=== PATIENT | male | born 1995 | race African-American/Black ===

== ENCOUNTER 2024-11-16 13:02 | Emergency (ER) | payer OTHER, SELFPAY ==
--- NOTE | ~2024-11-16 | XR_ITS ---
EXAM/PROCEDURE: XR chest 2V - 11/16/2024 13:50 CDT HISTORY: 29 years old Male with seizure TECHNIQUE: Two view(s) of the chest. COMPARISON: None available. FINDINGS: LUNGS/ PLEURA: No focal consolidation. No appreciable pneumothorax or large pleural effusion. HEART/ MEDIASTINUM: Heart appears normal in size. BONES: No acute osseous abnormality. OTHER: Visualized upper abdomen is unremarkable. IMPRESSION: No acute process. Reviewed, dictated and finalized at location A. IMPRESSION: No acute process.
--- NOTE | ~2024-11-16 | CT_ITS ---
Non-contrast Head CT History: Seizure, head injury Technique: Axial non-contrast imaging of the brain was performed. Dose reduction technique was used on this scan by utilizing automated exposure control and iterative reconstruction technique. The dose -length product (DLP) was 605.33 mGy-cm. Findings: There is no evidence of intracranial hemorrhage, mass lesion, or acute infarct. Brain par enchyma appears normal. The ventricles and subarachnoid spaces are normal in size. The calvarium ap pears normal. The visualized paranasal sinuses and mastoid air cells are clear. Impression: No significant abnormality seen. Reviewed, dictated and finalized at location . Impression: No significant abnormality seen.
[2024-11-16 12:52] VITALS: BP 133/80; PULSE 64; RESP 13; TEMP 36.3; O2SAT 100
[2024-11-16 13:08] VITALS: PULSE 74
[2024-11-16 13:30] VITALS: BP 134/76; PULSE 77; RESP 16; O2SAT 100
[2024-11-16 13:42] LABS: Hematocrit 45.7 % (42.0-52.0); Hemoglobin 15.3 g/dL (14.0-18.0); Immature Granulocyte Percent A 0.3 % (0-0.5); Lymphocytes Absolute Auto 1.56 K/mm3 (0.9-3.2); Mean Corpuscular HGB Conc 33.5 g/dl (32-36); Mean Corpuscular Hemoglobin 30.6 pg (26-34); Mean Corpuscular Volume 91.4 fl (80-100); Nucleated Red Blood Cells Absolute Auto 0.000 K/mm3 (0.0-0.012); Nucleated Red Blood Cells Perc 0.0 % (0.0-0.2); Platelet Count Result 143 k/mm3 (150-375); Red Blood Count 5.00 M/mm3 (4.6-6.20); White Blood Count 6.6 K/mm3 (4.5-10.0)
[2024-11-16 13:49] LABS: Alanine Aminotransferase 38 U/L (6-50); Albumin Level 4.7 g/dL (3.5-5.1); Alkaline Phosphatase 85 U/L (38-126); Anion Gap 10 mmol/L (4-12); Aspartate Amino Transferase 43 U/L (17-59); Bilirubin,Total 0.7 mg/dL (0.2-1.3); Blood Urea Nitrogen 15 mg/dL (9-20); Calcium 9.2 mg/dL (8.4-10.2); Carbon Dioxide 25 mmol/L (22-30); Chloride 104 mmol/L (98-107); Estimated Glomerular Filt Rate > 60; Glucose 111 mg/dL (65-110); Potassium 4.2 mmol/L (3.4-5.0); Sodium 139 mmol/L (137-145); Total Protein 8.1 g/dL (6.3-8.2)
[2024-11-16] MEDS: levETIRAcetam 1000MG/NACL100ML 1,000 MG/100 ML BAG 400 MG IVPB (14:11)
[2024-11-16] MEDS: Please add drug allergy info to patient profile. 1 EACH XX (14:11)
--- OUTSIDE RECORDS SUMMARY | 2024-11-16 14:23 | XMS_ITS | Continuity of Care Document ---
Author Name [facility] Organization [facility] Care Team Providers Care Assistant Research Scientist Name Role Phone [facility] Unavailable Unavailable Social History Combined list of available smoking, tobacco, and other social history from Department of Defense and Veterans Affairs facilities. Social History Type Response Date Comment Sourc e This section is an empty social history section. DoD
--- OUTSIDE RECORDS SUMMARY | 2024-11-16 14:23 | XMS_ITS | Referral Summary ---
Author Organization [facility] Address [address] [place] [address] Care Team Providers Care Shore Man Name Role Phone Carol Burkett NP Unavailable [phone] Nichelle Andrew MD Primary Care Provid er Clarke Robins MD Unavailable [phone] Iris Stubbs MD Unavailable [phone] Allergies No known active allergies Medications acetaminophen (TYLENOL) 500 mg tablet Take 1 tablet (500 mg total) by mouth every 6 (six) hours as needed for headaches or pain 30 tablet 2 Active Additional Information Patient not taking.Informant: Self, Reported on 04/25/2024 polyethylene glycol (GoLYTELY) 236-22.74-6.74 -5.86 gram solution Mix as directed. At 4:00 pm, begin drinking one half of the mixed solution; you will have until 7:00 pm to finish. At 10 pm drink the second half of the mixed solution, you have till midnight to finish. 4000 mL 4 Active Additional Information Patient not taking.Reported on 04/25/2024 bisacodyl EC (DULCOLAX EC) 5 mg EC tablet At 7 pm, take all four tablets at once with a glass of water. 4 tablet 4 Active Additional Information Patient not taking.Reported on 04/25/2024 Active Problems Problem Noted Date Diagnosed Date Family history of colon cancer 12/15/2023 Nasal obstruction 12/23/2022 Nasal septal deviation 12/23/2022 Hypertrophy of both inferior nasal turbinates Traumatic incomplete tear of right rotator cuff 11/10/2022 Assessment & Plan (11/10/2022 4:08 PM CDT): By MRI the patient has a partial-thickness tear of the rotator cuff. After reviewing the treatment options patient elected undergo a cortisone injection today to the severity of her symptoms. He will be enrolled in physical therapy to work on a rotator cuff rehab program. He is having persistent symptoms following the therapies return but most individuals respond to conservative measures. 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 His pain however is not associated with his AC joint where the nonunion is present. His pain is likely from his underlying partial-thickness tear of the rotator cuff. Physical therapy was prescribed to see what kind of recovery he can gain. Assessment & Plan (06/22/2021 10:43 AM JAVA GOLDEN GATE DEVELOPER): Patient appears to have a nonunion of the lateral end of the clavicle with displacement. He likely had a comminuted clavicle fracture. I am concerned however that he has weakness in the rotator cuff on exam that would be consistent with a rotator cuff tear. Would recommend obtaining an MRI to rule out the possibility of a tear in the vicinity of the shoulder. Will initiate appropriate treatment once results are available Lumbar herniated disc 06/22/2021 Assessment & Plan (08/05/2021 10:50 AM CDT): Patient has significant disc space narrowing in the lumbar spine in a single- level and likely has a herniation overt degeneration of the disc. He was denied his MRI. Would have physical therapy working on a conditioning program. He has not found oral anti-inflammatories helpful. He may find pain management helpful as well. Assessment & Plan (06/22/2021 10:45 AM JAVA GOLDEN GATE DEVELOPER): Patient has lost nearly all of his L4-5 disc height consistent with a disc herniation at his age. He does get radicular symptoms. He is not myelopathic. MRI would likely be helpful to evaluate the degree of stenosis the patient has present and initiate appropriate treatment once results are available Hip pain 06/22/2021 Assessment & Plan (06/22/2021 10:45 AM JAVA GOLDEN GATE DEVELOPER): Patient has pronounced hip and groin pain with standing. Has no evidence of a hernia or acute muscular issue with the hip. Concerned that he has pain with weight- bearing. He could have a stress fracture or even avascular necrosis. This is seen in higher incidence in males and the patient is physically quite active. Would recommend obtaining an MRI to rule out the possibility of AVN. He does have mild degenerative changes and could have a cam and pincer affect occurring in the hip joint as well. These can be associated with labral tears in the MRI will evaluate the labrum also Immunizations Immunization Administration Dates Next Due DTaP 12/13/1999 Hep A, Pediatric 02/04/2008,11/18/2006 IPV 12/13/1999 Influenza, Split 03/21/2008 Influenza, Unspecified 04/25/2024(Deferr ed: Patient Refused),05/17/2020(Deferred: Patient Refused),05/17/2020(Deferred: Patient Refused) MMR 02/07/1999 PPD TEST 01/26/2024 Tdap 11/19/2022 Varicella 12/10/1999 Social History Tobacco Use Types Packs/Day Years Used Date Smoking Tobacco: Former Cigars 2 - 2018 Passive Smoke Exposure: Past Smokeless Tobacco: Never Tobacco Cessation:Counseling Given: No Comments:2 cigars a day Alcohol Use Standard Drinks/Week Comments No 0 (1 standard drink = 0.6 oz pur e alcohol) AUDIT-C Answer Date Recorded Q1: How often do you have a drink containing alc ohol? Monthly or less 12/25/2023 Q2: How many drinks containi ng alcohol do you have on a typical day when you are drinking? 1 or 2 12/25/2023 Frequency of Binge Drinking Not on file 12/09 PHQ-2 Answer Date Recorded PHQ-2 Total Score (If total score is 3 or more points, staff should administer the PHQ-9) 2 12/02/2023 Personal Safety Answer Date Recorded Have you ever been in or are you currently in a harmful physical or emotional relationship or is someone making you feel afraid or unsafe? 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 Not on file Not on file Last Filed Vital Signs Vital Sign Reading Time Taken Comments Blood Pressure 120/70 04/25/2024 2:41 PM JAVA GOLDEN GATE DEVELOPER Pulse 50 04/25/2024 2:41 PM JAVA GOLDEN GATE DEVELOPER Temperature 36.1 C (97 F) 12/02/2023 3:53 PM CDT Respiratory Rate 16 04/25/2024 2:41 PM JAVA GOLDEN GATE DEVELOPER Oxygen Saturation 98% 04/25/2024 2:41 PM JAVA GOLDEN GATE DEVELOPER Inhaled Oxygen Concentration - - Weight 75.8 kg (167 lb) 04/25/2024 2:41 PM JAVA GOLDEN GATE DEVELOPER Height 172.7 cm (5' 8) 04/25/2024 2:41 PM JAVA GOLDEN GATE DEVELOPER Body Mass Index 25.39 04/25/2024 2:41 PM JAVA GOLDEN GATE DEVELOPER Plan of Treatment Not on file Procedures Procedure Name Priority Date/Time Associated Diagnosis Comments HEPATITIS C ANTIBODY Routine 12/03/2023 7:24 AM CDT Screen for STD (sexually transmitted disease) from Last 3 Months or Most Recently Relevant to Health Maintenance Results * Hepatitis C antibody Blood (12/03/2023 7:24 AM CDT) Hep C Ab Nonreactive Nonreactive Comment: Interpretive Data Nonreactive: Antibodies to HCV not detected. Does NOT exclude the possibility of recent exposure to HCV. Equivocal: Equivocal for HCV antibodies. Supplemental molecular testing will be automatically performed to determine infection status in accordance with current CDC screening recommendations. Reactive: Positive for HCV antibodies. This may represent current or past HCV infection. Supplemental molecular testing will be automatically performed to determine current infection status in accordance with current CDC screening recommendations. Interpretive data was last revised on 2019. Blood 12/03/2023 7:24 AM CDT 12/03/2023 10:48 AM CDT Nichelle Andrew MD LAB MICROBIOLOGY - G ENERAL ORDERABLES Final Result [id number] Department [place] [address] from Last 3 Months or Most Recently Relevant to Health Maintenance Insurance [employer] OPEN ACCESS CIGNA OPEN ACCESS Care Teams Shore Man Relationship Specialty Start Date End Date Nichelle Andrew MD [address] [facility] [address] [place] [address] PCP - General Internal Medicine 01/27/20 Carol Burkett NP Registered Nurse Nurse Practitioner 08/31/19 Clarke Robins MD [address] [facility] [address] [place] [address] Consulting Physician Physical Medicine and Rehabilitation 11/19/22 Iris Stubbs MD [address] [place] [address] Consulting Physician Otolaryngology 11/19/22
--- OUTSIDE RECORDS SUMMARY | 2024-11-16 14:23 | XMS_ITS | Clinical Summary ---
Author Organization [facility] Address [address] [place] [address] Care Team Providers Care Coil Winding Supervisor Name Role Phone Carol Burkett NP Unavailable [phone] Nichelle Andrew MD Primary Care Provid er Clarke Robins MD Unavailable [phone] Iris Stubbs MD Unavailable [phone] Allergies No known active allergies Medications acetaminophen [...] gain. Assessment & Plan (06/22/2021 10:43 AM ELEVATOR CONSTRUCTOR ELECTRIC): Patient appears to have a nonunion of [...] well. Assessment & Plan (06/22/2021 10:45 AM ELEVATOR CONSTRUCTOR ELECTRIC): Patient has lost nearly all of his L4-5 disc height consistent with a disc herniation at his age. He does get radicular symptoms. He is not myelopathic. MRI would likely be helpful to evaluate the degree of stenosis the patient has present and initiate appropriate treatment once results are available Hip pain 06/22/2021 Assessment & Plan (06/22/2021 10:45 AM ELEVATOR CONSTRUCTOR ELECTRIC): Patient has pronounced hip and groin pain [...] PPD TEST 01/26/2024 Tdap 11/19/2022 Varicella 12/10/1999 Surgical History Surgery Date Site/Laterality Comments WISDOM TOOTH EXTRACTION 05/11/2015 - 05/10/2016 [place] FLUORO GUIDED LUMBAR PUNCTURE 02/09/2023 Right COLONOSCOPY 12/25/2023 Medical History Medical History Date Comments PTSD (post-traumatic stress disorder) Depression Dental disease feb 2022 Fracture of nasal bones feb 2022 Dizziness feb 2022 Family History Medical History Relation Name Comments No Known Problems Brother Alcohol abuse Father K Cancer Father K Drug abuse Father K Prostate cancer Father K Alcohol abuse Father's Brother 1 A Drug abuse Father's Brother 2 AE Diabetes Father's Sister 1 S Drug abuse Father's Sister 2 SE Cancer Maternal Grandmother MT Diabetes Mother B Drug abuse Mother B Hypertension Mother B Alcohol abuse Mother's Brother 1 M Hypertension Mother's Brother 1 M Drug abuse Mother's Brother 2 MT Heart attack Mother's Brother 2 MT Diabetes Mother's Sister 1 T Drug abuse Mother's Sister 2 TT Diabetes Other Heart failure Other Hypertension Other Arthritis Paternal Grandmother AE Hypertension Paternal Grandmother AE No Known Problems Sister Anesthesia problems Neg Hx Relation Name Status Comments Brother Father K Father's Brother 1 A Father's Brother 2 AE Father's Sister 1 S Father's Sister 2 SE Maternal Grandmother MT Mother B Mother's Brother 1 M Mother's Brother 2 MT Mother's Sister 1 T Mother's Sister 2 TT Other Paternal Grandmother AE Sister Social History Tobacco Use Types Packs/Day Years [...] on file Legal Sex Male 11:56 PM ELEVATOR CONSTRUCTOR ELECTRIC Gender Identity Male 11/21/2020 9:56 PM CDT Sexual Orientation Straight 11/21/2020 9: 56 PM CDT 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 Not on file Not on file Obstetrics History Last Filed Vital Signs Vital Sign Reading Time Taken Comments Blood Pressure 120/70 04/25/2024 2:41 PM ELEVATOR CONSTRUCTOR ELECTRIC Pulse 50 04/25/2024 2:41 PM ELEVATOR CONSTRUCTOR ELECTRIC Temperature 36.1 C (97 F) 12/02/2023 3:53 PM CDT Respiratory Rate 16 04/25/2024 2:41 PM ELEVATOR CONSTRUCTOR ELECTRIC Oxygen Saturation 98% 04/25/2024 2:41 PM ELEVATOR CONSTRUCTOR ELECTRIC Inhaled Oxygen Concentration - - Weight 75.8 kg (167 lb) 04/25/2024 2:41 PM ELEVATOR CONSTRUCTOR ELECTRIC Height 172.7 cm (5' 8) 04/25/2024 2:41 PM ELEVATOR CONSTRUCTOR ELECTRIC Body Mass Index 25.39 04/25/2024 2:41 PM ELEVATOR CONSTRUCTOR ELECTRIC Plan of Treatment Health Maintenance Due Date Last Done Comments Varicella Vaccines (2 of 2 - 2-dose childhood series) 03/03/2000 12/10/1999 Hepatitis B Screening 08/20/2011 Depression Screening 12/01/2024 12/02/2023, 11/19/2022, 02/28/2022, Additional history exists Regular Well Visit/Exam 18-64 12/01/2024 12/02/2023, 12/02/2023, 11/19/2022, Additional history exists Influenza Vaccine (#1) 2025 03/21/2008 DTaP/Tdap/Td Vaccine (3 - Td or Tdap) 11/19/2032 11/19/2022, 12/13/1999 Hepatitis C Screening Completed 12/03/2023, 022 HPV Vaccines Aged Out No longer eligi ble based on patient's age to complete this topic Pneumococcal vaccine <65 Aged Out No longer eligible based on patient's age to complete this topic Procedures Procedure Name Priority Date/Time Associated Diagnosis [...] MICROBIOLOGY - G ENERAL ORDERABLES Final Result Performing Organization Address City/[place] Number [place] [address] [facility] Department [place] [address] from Last 3 Months or Most Recently Relevant to Health Maintenance Insurance [employer] OPEN ACCESS CIGNA OPEN ACCESS Care Teams Coil Winding Supervisor Relationship Specialty Start Date End Date Nichelle Andrew MD [address] [facility] [address] [place] [address] PCP - General Internal Medicine 01/27/20 Carol Burkett NP Registered Nurse Nurse Practitioner 08/31/19 Clarke Robins MD [address] [facility] [address] [place] [address] Consulting Physician Physical Medicine and Rehabilitation 11/19/22 Iris Stubbs MD [address] [place] [address] Consulting Physician Otolaryngology 11/19/22
--- OUTSIDE RECORDS SUMMARY | 2024-11-16 14:23 | XMS_ITS | Clinical Summary ---
Author Organization [facility] Address [address] [facility] [place] [address] Care Team Providers Care Qa Software Test Engineer Name Role Phone Nichelle Andrew MD Primary Care Provid er Source Comments [facility],non-owned Affiliates and Associated Physician Practices is amultiple site organization consisting of ambulatory clinics and hospital sitesin [place], [place], [place] and [place]. This disclosure is being madepursuant to the Care Everywhere program and may not contain all information available regarding this patient. Last updated 18.[facility] Social History Tobacco Use Types Packs/Day Years Used Date Smoking Tobacco: Never Assessed Sex and Gender Information Value Date Recorded Sex Assigned at Not on file Legal Sex Male 5:36 AM MALT LIQUORS SALES REPRESENTATIVE Gender Identity Not on file Sexual Orientation Not on file Last Filed Vital Signs Vital Sign Reading Time Taken Comments Blood Pressure 112/69 04/07/2024 11:15 AM MALT LIQUORS SALES REPRESENTATIVE Pulse 61 04/07/2024 11:15 AM MALT LIQUORS SALES REPRESENTATIVE Temperature 36.7 C (98.1 F) 04/07/2024 9:31 AM MALT LIQUORS SALES REPRESENTATIVE Respiratory Rate 10 04/07/2024 11:15 AM MALT LIQUORS SALES REPRESENTATIVE Oxygen Saturation 99% 04/07/2024 11:15 AM MALT LIQUORS SALES REPRESENTATIVE Inhaled Oxygen Concentration - - Weight - - Height - - Body Mass Index - - Plan of Treatment Health Maintenance Due Date Last Done Comments HIV SCREENING 2008 HEPATITIS C SCREENING 08/15/2011 DTAP/TDAP/TD VACCINES (1 - Tdap) 2012 HEPATITIS B VACCINE (1 of 3 - 19+ 3-dose series) 2012 COVID-19 VACCINE ( season) 2024 DEPRESSION SCREENING 05/11/2024 INFLUENZA VACCINE (#1) 2025 6, 03/17/2015, 01/21/2014, Additional history exists ZOSTER VACCINE (1 of 2) 08/20/2043 HIB VACCINE Aged Out No longer eligi ble based on patient's age to complete this topic HPV VACCINE Aged Out No longer eligi ble based on patient's age to complete this topic MENINGOCOCCAL (Group B) VACCINE SHARED DECISION-MAKING Aged Out No longer eligible based on patient's age to complete this topic MENINGOCOCCAL GROUPS A/C/Y/W VACCINE Aged Out No longer eligible based on patient's age to complete this topic PNEUMOCOCCAL VACCINE Aged Out No long er eligible based on patient's age to complete this topic Insurance CIG Care Teams Qa Software Test Engineer Relationship Specialty Start Date End Date Nichelle Andrew MD [facility] [address] [place] [address] PCP - General Internal Medicine 04/06/24
--- NOTE | 2024-11-16 14:48 | ED_ITS ---
HPI - Seizure General Chief Complaint: Seizure Stated Complaint: Seizure Time Seen by Provider: 11/16/24 13:17 History of Present Illness HPI Narrative: Patient is a 29-year-old male who presents ER after having a seizure work. Initially postictal. He is now alert orient x4 but still has some foggy memory. He had loss of bladder and tongue biting. He reports he had a seizure in the last 1-2 months but unsure which hospital he was at. He reports he is not on any antiepileptics. Reports occasional marijuana use but none today. No family history of seizure disorder. No history of trauma. Patient has abrasions to the head. Tetanus is up-to-date. Related Data Allergies Allergy/AdvReac Type Severity Reaction Status Date / Time No Known Allergies Allergy Verified 11/16/24 14:10 Review of Systems 2 Review of Systems: All systems reviewed & are unremarkable except as noted in HPI and below Constitutional: Constitutional: Reports no additional constitutional complaints ENT: Reports system reviewed and no additional complaints, except as documented Cardiovascular: Cardiovascular: Reports no additional cardiovascular complaints Respiratory: Respiratory: Reports no additional respiratory complaints Gastrointestinal: Gastrointestinal: Reports no additional gastrointestinal complaints Neurologic: Reports system reviewed and no additional complaints, except as documented PMFSH Past Medical History Medical History (Updated 11/16/24 @ 15:38 by Chris Goode MD) Healthy adult male Surgical History Surgical History (Updated 11/16/24 @ 14:51 by Chris Goode MD) No pertinent past surgical history Exam 2 Narrative: GENERAL: Well-appearing, well-nourished, and in no acute distress. HEAD: Normocephalic, abrasions right forehead and parietal region.. EYES: PERRL and EOMI. ENT: Mucous membranes moist. Tongue biting left side. CHEST: Clear to auscultation. No respiratory distress. HEART: Regular rate and rhythm. Normal peripheral pulses. ABDOMEN: Soft, nontender, nondistended. EXTREMITIES: Normal range of motion. No edema. SKIN: Warm, dry, no rash. NEURO: Alert and oriented x3. PSYCH: Normal mood and affect. Course Course Emergency Course: Discussed case with Neurology on-call. Patient has received 1 g of Keppra. Discharged with Keppra 750 mg twice a day. Driving restrictions given. Patient verbalized understanding. Discharge home. Vital Signs Vital signs: Vital Signs Temperature 97.3 F L 11/16/24 12:52 Pulse Rate 64 11/16/24 12:52 Respiratory Rate 13 11/16/24 12:52 Blood Pressure 133/80 11/16/24 12:52 Pulse Oximetry 100 11/16/24 12:52 Oxygen Delivery Room Air 11/16/24 12:52 Temperature 97.3 F L 11/16/24 12:52 Pulse Rate 77 11/16/24 13:30 Respiratory Rate 16 11/16/24 13:30 Blood Pressure 134/76 11/16/24 13:30 Pulse Oximetry 100 11/16/24 13:30 Oxygen Delivery Room Air 11/16/24 13:04 MDM - Seizure Lab Data 11/16/24 13:30 11/16/24 13:30 Labs: Lab Results 11/16/24 11/16/24 Range/Units 13:30 14:46 WBC 6.6 (4.5-10.0) K/mm3 RBC 5.00 (4.6-6.20) M/mm3 Hgb 15.3 (14.0-18.0) g/dL Hct 45.7 (42.0-52.0) % MCV 91.4 (80-100) fl MCH 30.6 (26-34) pg MCHC 33.5 (32-36) g/dl RDW 12.6 (11.5-14.5) % Plt Count 143 L (150-375) k/mm3 MPV 10.8 H (7.4-10.4) fl Immature Gran % (Auto) 0.3 (0-0.5) % Neut % (Auto) 71.3 (45.5-73.1) % Lymph % (Auto) 23.6 (18.3-44.2) % Becker % (Auto) 4.1 (2.6-8.5) % Eos % (Auto) 0.5 (0-4.4) % Baso % (Auto) 0.2 (0.2-1.2) % Lymph # (Auto) 1.56 (0.9-3.2) K/mm3 Becker # (Auto) 0.3 (0.1-0.6) K/mm3 Eos # (Auto) 0.0 (0-0.3) K/mm3 Baso # (Auto) 0.0 (0.0-0.1) K/mm3 Abs Immat Gran (auto) 0.02 (0.00-0.031) K/mm3 Absolute Neuts (auto) 4.7 (1.3-6.7) K/mm3 Absolute Nucleated RBC 0.000 (0.0-0.012) K/mm3 Nucleated RBC % 0.0 (0.0-0.2) % Sodium 139 (137-145) mmol/L Potassium 4.2 (3.4-5.0) mmol/L Chloride 104 (98-107) mmol/L Carbon Dioxide 25 (22-30) mmol/L Anion Gap 10 (4-12) mmol/L BUN 15 (9-20) mg/dL Creatinine 1.34 H (0.7-1.3) mg/dL Estim Creat Clear Calc Not Reportable Estimated GFR > 60 (59 - ) Glucose 111 H (65-110) mg/dL Calcium 9.2 (8.4-10.2) mg/dL Total Bilirubin 0.7 (0.2-1.3) mg/dL AST 43 (17-59) U/L ALT 38 (6-50) U/L Alkaline Phosphatase 85 (38-126) U/L Total Protein 8.1 (6.3-8.2) g/dL Albumin 4.7 (3.5-5.1) g/dL Urine Color Yellow (Yellow) Urine Appearance Clear (Clear) Urine pH 5.5 (5.0-9.0) Ur Specific Beaman 1.019 (1.001-1.035) Urine Protein 1+ H (Negative) mg/dL Urine Glucose (UA) Negative (Negative) mg/dL Urine Ketones Trace H (Negative) mg/dL Ur Blood (Man) Negative (Negative) Urine Nitrate Negative (Negative) Urine Bilirubin Negative (Negative) Urine Urobilinogen 0.2 (<2.0) mg/dL Leukocyte Esterase Rfl Negative (Negative) NATALIA/UL Urine RBC 0-2 (0-2) /hpf Urine WBC 0-5 (0-3) /hpf Ur Squamous Epith Cells None seen (Few) /hpf Urine Bacteria None seen /hpf Urine Casts 0-2 Urine Opiates Screen Negative (Negative) Urine Methadone Screen Negative (Negative) Ur Barbiturates Screen Negative (Negative) Ur Phencyclidine Scrn Negative (Negative) Ur Amphetamine Screen Negative (Negative) U Benzodiazepines Scrn Negative (Negative) Urine Cocaine Screen Negative (Negative) U Cannabinoids Screen Positive A (Negative) Ethyl Alcohol < 10 (<10) mg/dL Imaging Data Radiologist's impression: ITS Impressions Head CT 11/16/24 13:54 Impression: No significant abnormality seen. Chest X-Ray 11/16/24 14:06 IMPRESSION: No acute process. Discharge Plan Discharge Clinical Impression: New onset seizure, Abrasion Patient Disposition: Home Condition: Stable Instructions: New-Onset Seizure in Adults (ED) Additional Instructions: Return the ER if you have fever 100.4? F, you have recurrent seizure, you develop chest pain, or you have additional concerns. Patient Language: Senegalese Prescriptions: New levetiracetam [Keppra] 750 mg tablet 750 mg PO BID Qty: 60 0RF Other Ambulatory Orders: EEG (Routine) Timeframe: 1 Month Facility: [facility] - Location: [facility] Neurology Ordered By: Chris Goode Follow-up/Referrals: Neno Moctezuma MD [Physician] - 1 Week PHYSICIAN,ROOM CLEANER [Primary Care Provider] -
[2024-11-16 14:59] LABS: Add Urine Microscopic? YES; Appearance Urine Clear (Clear); Glucose Urine UA Negative (Negative); Leukocyte Esterase Ur Negative LEU/UL (Negative); Nitrate Urine Negative (Negative); Non Pathogenic Casts 0-2; Specific Grav Ur 1.019 (1.001-1.035)
[2024-11-16 15:14] LABS: Cannabinoid Screen Urine Positive (Negative)
[2024-11-16 15:45] VITALS: BP 115/57; PULSE 60; RESP 18; O2SAT 100
== END 2024-11-16 15:56 | disposition home or self-care (01) ==
PROVIDERS: Emergency Provider Emergency Medicine
DX: R56.9 Unspecified convulsions (principal); S00.81XA Abrasion of other part of head, initial encounter; X19.XXXA Contact with other heat and hot substances, initial encounter
CPT/HCPCS: 36415; 70450; 71046; 80053; 80307; 81001; 82077; 85025; 96374; 99284; J1953

== ENCOUNTER 2025-02-02 06:05 | Observation (INO) | payer OTHER, SELFPAY ==
[2025-02-02] VITALS (26 sets, daily range): BP systolic 101–130; BP diastolic 43–69; PULSE 61–95; RESP 14–30; TEMP 36.8–37.1; O2SAT 94–100; BMI 30.7
--- NOTE | ~2025-02-02 | CT_ITS ---
CT HEAD CTA NECK, CTA HEAD Clinical History: seizure, PER DR STERN: PLEASE LOOK AT L MANDIBLE Comparison: None TECHNIQUE: Unenhanced axial images skull base to vertex Coronal, sagittal reformats Helical images thoracic inlet to vertex 100 mL Omnipaque 350 Coronal, sagittal reformats. Multi planar MIPS CT images acquired with automatic exposure control for dose reduction DLP: 1698 mGy-cm Findings: CT HEAD Sulci, ventricles: Unremarkable. No intracerebral hemorrhage. No evidence acute territorial infarct. No mass effect, midline shift. Bony calvarium intact. Visualized paranasal sinuses: Clear. Mastoid air cells: Clear. No abnormal foci of contrast enhancement. Patent dural venous sinuses. Small hematoma right parietal scalp. CTA NECK NASCET Criteria utilized Aortic arch: No aneurysm or dissection. Great vessel origins: No stenosis. CCAs: No dissection. No stenosis. Cervical ICAs: No dissection. No stenosis. Vertebral Arteries: Patent. Lung Apices: Diffuse airspace disease. Thyroid: Unremarkable. Nodes: No enlarged nodes. Bones: No acute bony abnormality. CTA HEAD: Aneurysms: None. Intracranial ICAs: Patent, unremarkable. ACAs and their distal branches: Patent, unremarkable. A-Comm: Identified. Patent, unremarkable. MCAs and their distal branches: Patent, unremarkable. Basilar artery: Patent, unremarkable. childhood development teacher and their distal branches: Patent, unremarkable. P-Comms: Identified. IMPRESSION: CT HEAD: 1. No acute intracranial findings. CTA NECK: 1. No ICA stenosis or other acute arterial abnormality. 2. Diffuse lung airspace disease. Recommend chest x-rays and/or CT chest. CTA HEAD: 1. No large vessel arterial occlusive disease or other acute findings. 2. No aneurysms. Reviewed, dictated and finalized at location R.
--- NOTE | ~2025-02-02 | XR_ITS ---
Examination: XR chest 1V portable Clinical History: rec by radiology Comparison: 11/16/2024 Technique: Portable AP Findings: Heart size normal. Diffuse airspace opacities right lung. No acute bony abnormality. IMPRESSION: 1. Asymmetric airspace disease diffusely right lung. Unilateral pulmonary edema and/or pneumonitis most likely. Reviewed, dictated and finalized at location R. IMPRESSION: 1. Asymmetric airspace disease diffusely right lung. Unilateral pulmonary alban a and/or pneumonitis most likely.
--- NOTE | ~2025-02-02 | MR_ITS ---
EXAMINATION: MR brain/brain stem wo con DATE: 02/04/2025 12:49 INDICATION: Seizure. TECHNIQUE: Magnetic resonance imaging (MRI) of the brain and brainstem was performed without intravenous contrast. COMPARISON: Head CT 02/02/2025 FINDINGS: There is a small focus of increased T2-weighted signal intensity in left hippocampus on one coronal image. There is no intracranial hemorrhage, acute infarction, or abnormal intracranial mass lesion. The ventricles are normal in size. The orbits are normal. There is mild mucosal thickening in the paranasal sinuses. The mastoid air cells are normal. IMPRESSION: 1. 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 Reviewed, dictated and finalized at location E. IMPRESSION: 1. Small focus of increased T2-weighted signal intensity in the left hippocampu s suspicious for mesial temporal sclerosis.
--- NOTE | 2025-02-02 06:37 | ECG_ITS ---
Test Date: 2025-02-02 06:44:35 Measurements Intervals [place] Rate: 79 P: 63 NH: 173 QRS: 47 QRSD: 101 T: 59 QT: 369 QTc: 424 Interpretive Statements SINUS RHYTHM ST ELEVATION, PROBABLY EARLY REPOLARIZATION [ST ELEVATION WITH NORMALLY INFLECTED T-WAVE] WITHIN NORMAL LIMITS No previous ECG available for comparison Electronically Signed On 02-02-2025 16:29:24 CDT by Fili Shaw M.D.
[2025-02-02 07:02] LABS: Hematocrit 43.2 % (42.0-52.0); Hemoglobin 14.5 g/dL (14.0-18.0); Immature Granulocyte Percent A 0.3 % (0-0.5); Immature Platelet Fraction Pct 7.8 % (0.9-11.2); Lymphocytes Absolute Auto 2.01 K/mm3 (0.9-3.2); Mean Corpuscular HGB Conc 33.6 g/dl (32-36); Mean Corpuscular Hemoglobin 30.0 pg (26-34); Mean Corpuscular Volume 89.3 fl (80-100); Nucleated Red Blood Cells Absolute Auto 0.000 K/mm3 (0.0-0.012); Nucleated Red Blood Cells Perc 0.0 % (0.0-0.2); Platelet Count Result 129 k/mm3 (150-375); Red Blood Count 4.84 M/mm3 (4.6-6.20); White Blood Count 8.0 K/mm3 (4.5-10.0)
--- NOTE | 2025-02-02 07:10 | ED_ITS ---
HPI - General Adult General Chief complaint: Seizure Stated complaint: FALL, SZ, HEAD INJURY Time Seen by Provider: 02/02/25 06:53 History of Present Illness HPI narrative: 29-year-old male presents to the emergency department for evaluation after having a seizure. Patient does have a new history of seizure. This is the patient's 3rd seizure. Patient was at work when he felt off and had the reported seizure. Patient did strike his head. Upon arrival emergency department patient is alert and appropriate but does have a posterior scalp hematoma. Patient states the left side of his jaw does her but denies any other pain or injury. Patient states he does have follow-up with Neurology in February. Related Data Allergies Allergy/AdvReac Type Severity Reaction Status Date / Time No Known Allergies Allergy Verified 02/02/25 11:09 Review of Systems 2 Review of Systems: All systems reviewed & are unremarkable except as noted in HPI and below PMFSH Past Medical History Medical History (Updated 02/02/25 @ 16:36 by Krzysztof Powell MD) Healthy adult male Surgical History Surgical History (Updated 11/16/24 @ 14:51 by Chris Goode MD) No pertinent past surgical history Family History Family History Mother Congestive heart failure Bipolar 1 disorder Hypertension Father Cancer Grandparent Hypertension Pancreatic cancer Diabetes mellitus Social History Social History Smoking status: Former smoker Tobacco type: cigarettes Alcohol intake: never Substance use: current Substance use type: marijuana Lack of Transportation: No Lack of Food: Never True Current Housing: I Have Housing Concerned About Future Housing: No Difficulty Paying Gas/Electric Bills: No Difficulty Paying for Meds: No Currently Unemployed: No Education: Decline to Answer Difficulty w/ Childcare or Family Care: No Spiritual care concerns: No Exam 2 Narrative: APPEARANCE: Tired appearing HEAD: normocephalic, abrasion/hematoma to right posterior scalp. EYES: PERRLA/EOMI, conjunctivae clear. NOSE: Normal no drainage EARS:TMS clear with good light reflex. THROAT: Pharynx clear, no exudate. NECK: Supple. No adenopathy, no masses. RESPIRATORY: Airway patent, respirations nonlabored. Clear to auscultation bilaterally, no rales, rhonchi, wheezing. CARDIOVASCULAR: Regular rate and rhythm without murmurs rubs or gallops. ABDOMINAL: Soft, nontender, nondistended, normal bowel sounds MUSCULOSKELETAL: Moves all extremities. Strength/ROM intact, No edema, No calf tenderness. NEURO: Alert. Cranial nerves II through XII intact. Grossly intact SKIN: Warm, dry. Normal Color Course Vital Signs Vital signs: Vital Signs Temperature 98.2 F 02/02/25 06:01 Pulse Rate 78 02/02/25 06:01 Respiratory Rate 18 02/02/25 06:01 Blood Pressure 130/69 02/02/25 06:01 Pulse Oximetry 100 02/02/25 06:01 Oxygen Delivery Room Air 02/02/25 06:01 Temperature 98.2 F 02/02/25 06:01 Pulse Rate 63 02/02/25 12:00 Respiratory Rate 14 02/02/25 10:15 Blood Pressure 119/59 L 02/02/25 10:15 Pulse Oximetry 98 02/02/25 10:15 Oxygen Delivery Room Air 02/02/25 11:20 Medical Decision Making MDM Narrative Medical decision making narrative: 29-year-old male present to the emergency department for evaluation for seizure. Patient has new history of seizures and did have his 3rd seizure ever today. Patient was re-evaluated later and was found to be diaphoretic with a new bite to his lip. Suspect the patient had a 2nd seizure of the day in the emergency department. Patient was started on 1 L of normal saline and also started on 1 g of IV Keppra. No repair of head abrasion or lip injury was necessary Neurology was consulted. Case was discussed with hospitalist [facility] Patient family were updated the results of the workup plan for admission. Patient was treated with IV Keppra at time of admission. Differential Diagnosis Differential Diagnosis: Seizure, TIA, CVA, subdural trauma, subarachnoid hemorrhage, cervical spine fracture, skull fracture Vital Signs Vital Signs: Vital Signs Temperature 98.2 F 02/02/25 06:01 Pulse Rate 78 02/02/25 06:01 Respiratory Rate 18 02/02/25 06:01 Blood Pressure 130/69 02/02/25 06:01 Pulse Oximetry 100 02/02/25 06:01 Oxygen Delivery Room Air 02/02/25 06:01 Temperature 98.2 F 02/02/25 06:01 Pulse Rate 63 02/02/25 12:00 Respiratory Rate 14 02/02/25 10:15 Blood Pressure 119/59 L 02/02/25 10:15 Pulse Oximetry 98 02/02/25 10:15 Oxygen Delivery Room Air 02/02/25 11:20 Lab Data Lab results reviewed: Yes I reviewed the patient's lab results. 02/02/25 06:52 02/02/25 06:52 Labs: Lab Results 02/02/25 02/02/25 02/02/25 Range/Units 06:52 07:10 07:39 WBC 8.0 (4.5-10.0) K/mm3 RBC 4.84 (4.6-6.20) M/mm3 Hgb 14.5 (14.0-18.0) g/dL Hct 43.2 (42.0-52.0) % MCV 89.3 (80-100) fl MCH 30.0 (26-34) pg MCHC 33.6 (32-36) g/dl RDW 12.5 (11.5-14.5) % Plt Count 129 L (150-375) k/mm3 MPV 10.7 H (7.4-10.4) fl Immature Gran % (Auto) 0.3 (0-0.5) % Neut % (Auto) 66.6 (45.5-73.1) % Lymph % (Auto) 25.2 (18.3-44.2) % [place] % (Auto) 6.5 (2.6-8.5) % Eos % (Auto) 1.1 (0-4.4) % Baso % (Auto) 0.3 (0.2-1.2) % Lymph # (Auto) 2.01 (0.9-3.2) K/mm3 [place] # (Auto) 0.5 (0.1-0.6) K/mm3 Eos # (Auto) 0.1 (0-0.3) K/mm3 Baso # (Auto) 0.0 (0.0-0.1) K/mm3 Abs Immat Gran (auto) 0.02 (0.00-0.031) K/mm3 Absolute Neuts (auto) 5.3 (1.3-6.7) K/mm3 Absolute Nucleated RBC 0.000 (0.0-0.012) K/mm3 Nucleated RBC % 0.0 (0.0-0.2) % % Immature Plt Fraction 7.8 (0.9-11.2) % PT 13.9 (11.1-14.7) Seconds INR 1.1 APTT 25.6 (22.3-36.8) Seconds Sodium 137 (137-145) mmol/L Potassium 4.1 (3.4-5.0) mmol/L Chloride 101 (98-107) mmol/L Carbon Dioxide 29 (22-30) mmol/L Anion Gap 7 (4-12) mmol/L BUN 20 (9-20) mg/dL Creatinine 1.14 (0.7-1.3) mg/dL Estim Creat Clear Calc 92 ml/min Estimated GFR > 60 (59 - ) Glucose 88 (65-110) mg/dL POC Capillary Glucose 92 (65-105) mg/dl Calcium 9.4 (8.4-10.2) mg/dL Total Bilirubin 0.4 (0.2-1.3) mg/dL AST 44 (17-59) U/L ALT 36 (6-50) U/L Alkaline Phosphatase 89 (38-126) U/L Total Protein 7.7 (6.3-8.2) g/dL Albumin 4.3 (3.5-5.1) g/dL Urine Color Yellow (Yellow) Urine Appearance Clear (Clear) Urine pH 5.5 (5.0-9.0) Ur Specific [place] 1.026 (1.001-1.035) Urine Protein Trace (Negative) mg/dL Urine Glucose (UA) Negative (Negative) mg/dL Urine Ketones Trace H (Negative) mg/dL Ur Blood (Man) Negative (Negative) Urine Nitrate Negative (Negative) Urine Bilirubin Negative (Negative) Urine Urobilinogen 0.2 (<2.0) mg/dL Leukocyte Esterase Rfl Negative (Negative) NATALIA/UL Urine RBC 0-2 (0-2) /hpf Urine WBC 0-5 (0-3) /hpf Ur Squamous Epith Cells None seen (Few) /hpf Urine Bacteria None seen /hpf Urine Casts 3-5 Imaging Data Radiologist's impression: Impressions Head/Neck CTA 02/02/25 08:08 IMPRESSION: CT HEAD: 1. No acute intracranial findings. CTA NECK: 1. No ICA stenosis or other acute arterial abnormality. 2. Diffuse lung airspace disease. Recommend chest x-rays and/or CT chest. CTA HEAD: 1. No large vessel arterial occlusive disease or other acute findings. 2. No aneurysms. ECG Data EKG #1: EKG Interpretation: normal rate, sinus rhythm, no ectopy, non-specific ST changes, normal QRS, normal QT and NL axis Discharge Plan Discharge Clinical Impression: Generalized seizure, Head injury, Injury of lip Patient Disposition: Still a Patient Condition: Serious
[2025-02-02 07:14] LABS: INR 1.1; Prothrombin Time 13.9 Seconds (11.1-14.7)
[2025-02-02 07:15] LABS: Partial Thromboplastin Time 25.6 Seconds (22.3-36.8)
[2025-02-02 07:22] LABS: Add Urine Microscopic? YES; Appearance Urine Clear (Clear); Glucose Urine UA Negative (Negative); Leukocyte Esterase Ur Negative LEU/UL (Negative); Nitrate Urine Negative (Negative); Specific Grav Ur 1.026 (1.001-1.035)
[2025-02-02 07:25] LABS: Alanine Aminotransferase 36 U/L (6-50); Albumin Level 4.3 g/dL (3.5-5.1); Alkaline Phosphatase 89 U/L (38-126); Anion Gap 7 mmol/L (4-12); Aspartate Amino Transferase 44 U/L (17-59); Bilirubin,Total 0.4 mg/dL (0.2-1.3); Blood Urea Nitrogen 20 mg/dL (9-20); Calcium 9.4 mg/dL (8.4-10.2); Carbon Dioxide 29 mmol/L (22-30); Chloride 101 mmol/L (98-107); Estimated CRCL calculation 92 ml/min; Estimated Glomerular Filt Rate > 60; Glucose 88 mg/dL (65-110); Potassium 4.1 mmol/L (3.4-5.0); Sodium 137 mmol/L (137-145); Total Protein 7.7 g/dL (6.3-8.2)
--- OUTSIDE RECORDS SUMMARY | 2025-02-02 07:25 | XMS_ITS | Clinical Summary ---
Author Organization [facility] Address [address] [place] [address] Care Team Providers Care Funeral Service Licensee Name Role Phone Nichelle Andrew MD Primary Care Provid er Source Comments [facility] [employer],non-owned Affiliates and Associated Physician Practices is amultiple site organization consisting of ambulatory clinics and hospital sitesin [place], [place], [place] and [place]. This disclosure is being madepursuant to the Care Everywhere program and may not contain all information available regarding this patient. Last updated 18.[facility] [employer] Social History Tobacco Use Types Packs/Day Years Used Date Smoking Tobacco: Never Assessed Sex and Gender Information Value Date Recorded Sex Assigned at Not on file Legal Sex Male 5:36 AM PRISM INSPECTOR Gender Identity Not on file Sexual Orientation Not on file Last Filed Vital Signs Vital Sign Reading Time Taken Comments Blood Pressure 112/69 04/07/2024 11:15 AM PRISM INSPECTOR Pulse 61 04/07/2024 11:15 AM PRISM INSPECTOR Temperature 36.7 C (98.1 F) 04/07/2024 9:31 AM PRISM INSPECTOR Respiratory Rate 10 04/07/2024 11:15 AM PRISM INSPECTOR Oxygen Saturation 99% 04/07/2024 11:15 AM PRISM INSPECTOR Inhaled Oxygen Concentration - - Weight - - Height - - Body Mass Index - - Plan of Treatment Health Maintenance Due Date Last Done Comments HIV SCREENING 2008 HEPATITIS C SCREENING 08/15/2011 DTAP/TDAP/TD VACCINES (1 - Tdap) 2012 HEPATITIS B VACCINE (1 of 3 - 19+ 3-dose series) 2012 HPV VACCINE (1 - 3-dose SCDM series) 2020 DEPRESSION SCREENING 05/11/2024 COVID-19 VACCINE (2023- season) 2025 INFLUENZA VACCINE (#1) 2025 6, 03/17/2015, 01/21/2014, [...] patient's age to complete this topic Insurance [employer] Care Teams Funeral Service Licensee Relationship Specialty Start Date End Date Nichelle Andrew MD [facility] [address] [address] PCP - General Internal Medicine 04/06/24
--- OUTSIDE RECORDS SUMMARY | 2025-02-02 07:25 | XMS_ITS | Clinical Summary ---
Author Organization [facility] Address [address] [place] [address] Care Team Providers Care Retail Grocer Name Role Phone Carol Burkett NP Unavailable [phone] Nichelle Andrew MD Primary Care Provid er Clarke Robins MD Unavailable [phone] Iris Stubbs MD Unavailable [phone] Allergies No known active allergies Medications acetaminophen (TYLENOL) 500 mg tablet Take 1 tablet (500 mg total) by mouth every 6 (six) hours as needed for headaches or pain 30 tablet 2 Active Additional Information Patient not taking.Informant: Self, Reported on 11/28/2024 polyethylene glycol (GoLYTELY) 236-22.74-6.74 -5.86 gram solution Mix as directed. At 4:00 pm, begin drinking one half of the mixed solution; you will have until 7:00 pm to finish. At 10 pm drink the second half of the mixed solution, you have till midnight to finish. 4000 mL 4 Active Additional Information Patient not taking.Reported on 11/28/2024 bisacodyl EC (DULCOLAX EC) 5 mg EC tablet At 7 pm, take all four tablets at once with a glass of water. 4 tablet 4 Active Additional Information Patient not taking.Reported on 11/28/2024 Active Problems Problem Noted Date Diagnosed Date [...] gain. 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 Assessment & Plan (06/22/2021 10:45 AM SYSTEMS DEVELOPER): Patient has lost nearly all of his L4-5 disc height consistent with a disc herniation at his age. He does get radicular symptoms. He is not myelopathic. MRI would likely be helpful to evaluate the degree of stenosis the patient has present and initiate appropriate treatment once results are available Hip pain 06/22/2021 Assessment & Plan (06/22/2021 10:45 AM SYSTEMS DEVELOPER): Patient has pronounced hip and groin [...] the MRI will evaluate the labrum also Encounters Date Type Department Care Team Description 11/28/[address] [facility] Primary Care at [facility] - [address] [place] [phone] Nichelle Andrew MD from Last 3 Months Immunizations Immunization Administration Dates Next Due DTaP 12/13/1999 Hep A, Pediatric 02/04/2008,11/18/2006 IPV 12/13/1999 Influenza, Split 03/21/2008 Influenza, Unspecified 04/25/2024(Deferr ed: Patient Refused),02/26/2023(Deferred: Patient Refused),05/17/2020(Deferred: Patient Refused) MMR 02/07/1999 PPD [...] Past Smokeless Tobacco: Never Tobacco Cessation:Counseling Given: Not Answered Comments:2 cigars a day Alcohol Use Standard [...] PHQ-2 Answer Date Recorded PHQ-2 Total Score 0 11/28/2024 Personal Safety Answer Date Recorded Have you ever been in or are you currently in a harmful physical or emotional relationship or is someone making you feel afraid or unsafe? Denies 12/25/2023 Sex and Gender Information Value Date Recorded Sex Assigned at Not on file Legal Sex Male 11:56 PM SYSTEMS DEVELOPER Gender Identity Male 11/21/2020 9:56 PM CDT Sexual Orientation Straight 11/21/2020 9: 56 PM CDT 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 Not on file Not on file Obstetrics History Last Filed Vital Signs Vital Sign Reading Time Taken Comments Blood Pressure 120/70 04/25/2024 2:41 PM SYSTEMS DEVELOPER Pulse 50 04/25/2024 2:41 PM SYSTEMS DEVELOPER Temperature 36.1 C (97 F) 12/02/2023 3:53 PM CDT Respiratory Rate 18 11/28/2024 10:58 AM CDT Oxygen Saturation 98% 04/25/2024 2:41 PM SYSTEMS DEVELOPER Inhaled Oxygen Concentration - - Weight 75.8 kg (167 lb) 04/25/2024 2:41 PM SYSTEMS DEVELOPER Height 172.7 cm (5' 8) 11/28/2024 10:58 AM CDT Body Mass Index 25.39 04/25/2024 2:41 PM SYSTEMS DEVELOPER Plan of Treatment Health Maintenance Due Date Last Done Comments Varicella Vaccines (2 of 2 - 2-dose childhood series) 03/03/2000 12/10/1999 Hepatitis B Screening 08/20/2011 HPV Vaccines (1 - 3-dose SCDM series) 2020 Regular Well Visit/Exam 18-64 12/01/2024 12/02/2023, 12/02/2023, 11/19/2022, Additional history exists Influenza Vaccine (#1) 2025 03/21/2008 Depression Screening 11/28/2025 11/28/2024, 12/02/2023, 11/19/2022, Additional history exists DTaP/Tdap/Td Vaccine (3 - Td or Tdap) 11/19/2032 11/19/2022, 12/13/1999 Hepatitis C Screening Completed 12/03/2023, 022 Pneumococcal vaccine <65 Aged Out No longer [...] - G [place]ER[place] [id number] [address] Department of Laboratories [place], [place] [id number] from Last 3 Months or Most Recently Relevant to Health Maintenance Insurance [employer] OPEN ACCESS [employer] OPEN ACCESS [facility] CHOICE PLUS Care Teams Retail Grocer Relationship Specialty Start Date End Date Nichelle Andrew MD [address] [facility] [facility] [address], [place] [address] PCP - General Internal Medicine 01/27/20 Carol Burkett NP Registered Nurse Nurse Practitioner 08/31/19 Clarke Robins MD [address] [facility] [address] [place] [address] Consulting Physician Physical Medicine and Rehabilitation 11/19/22 Iris Stubbs MD [address] [place] [address] Consulting Physician Otolaryngology 11/19/22
--- NOTE | 2025-02-02 07:30 | PC.NURSE ---
Pt found slumped in the bed and only arousable to deep sternal rub. Diaphoretic. Abrasion to inner lower lip and incontinent of urine. ERP aware and orders received.
[2025-02-02] MEDS: SODIUM CHLORIDE 0.9% IV 1,000 ML 999 ML IV CONT (07:41)
[2025-02-02] MEDS: levETIRAcetam 1000MG/NACL100ML 1,000 MG/100 ML BAG 400 MG IVPB (07:42)
--- NOTE | 2025-02-02 07:48 | PC.NURSE ---
Awake. Pt does not remember episode.
--- NOTE | 2025-02-02 08:42 | PC.NURSE ---
Sleeping but arousable to verbal stimuli.
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
[2025-02-02] MEDS: LACTATED RINGERS 1,000 ML 125 ML IV CONT ×2 (11:15→20:32)
--- NOTE | 2025-02-02 11:19 | ADMGEN ---
This patient, Ryan Poe, was admitted to [facility] Surg Room 317-01. Patient/family oriented to hospital policies and general routines including ID bracelet, bed and alarms, visiting hours, pain management, procedures, bathroom and other care routines, personal items, smoking policy, room service/diet, and visiting hours. Information on how to activate the Rapid Response Team has been discussed. Patient/Family are encouraged to report perceived risks to care and to ask questions if they do not understand what they are told or what they should do. received report from Joann.
[2025-02-02] MEDS: ONDANSETRON INJ 4 MG/2 ML VIAL IV PUSH (11:43)
[2025-02-02] MEDS: ACETAMINOPHEN 325 MG TABLET 650 MG PO (17:28)
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
[2025-02-02] MEDS: levETIRAcetam Tablet 250 MG, levETIRAcetam Tablet 500 MG 750 MG PO (20:32)
[2025-02-03] VITALS (9 sets, daily range): BP systolic 104–159; BP diastolic 48–70; PULSE 49–70; RESP 16–20; TEMP 36.3–37; O2SAT 99–100
[2025-02-03] MEDS: LACTATED RINGERS 1,000 ML 125 ML IV CONT (03:54)
[2025-02-03] MEDS: levETIRAcetam Tablet 250 MG, levETIRAcetam Tablet 500 MG 750 MG PO ×2 (09:01→20:19)
[2025-02-03] MEDS: ENOXAPARIN 40 MG/0.4 ML SYRINGE SUB-Q (09:01)
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
[2025-02-04] VITALS (9 sets, daily range): BP systolic 114–134; BP diastolic 61–69; PULSE 47–56; RESP 14–18; TEMP 36.4–37; O2SAT 98–99
[2025-02-04 05:36] LABS: Hematocrit 39.4 % (42.0-52.0); Hemoglobin 13.0 g/dL (14.0-18.0); Immature Granulocyte Percent A 0.3 % (0-0.5); Immature Platelet Fraction Pct 8.2 % (0.9-11.2); Lymphocytes Absolute Auto 2.21 K/mm3 (0.9-3.2); Mean Corpuscular HGB Conc 33.0 g/dl (32-36); Mean Corpuscular Hemoglobin 30.0 pg (26-34); Mean Corpuscular Volume 90.8 fl (80-100); Nucleated Red Blood Cells Absolute Auto 0.000 K/mm3 (0.0-0.012); Nucleated Red Blood Cells Perc 0.0 % (0.0-0.2); Platelet Count Result 109 k/mm3 (150-375); Red Blood Count 4.34 M/mm3 (4.6-6.20); White Blood Count 7.7 K/mm3 (4.5-10.0)
[2025-02-04 05:58] LABS: Anion Gap 5 mmol/L (4-12); Blood Urea Nitrogen 13 mg/dL (9-20); Calcium 8.6 mg/dL (8.4-10.2); Carbon Dioxide 25 mmol/L (22-30); Chloride 106 mmol/L (98-107); Estimated CRCL calculation 97 ml/min; Estimated Glomerular Filt Rate > 60; Glucose 84 mg/dL (65-110); Potassium 3.9 mmol/L (3.4-5.0); Sodium 136 mmol/L (137-145)
[2025-02-04] MEDS: levETIRAcetam Tablet 250 MG, levETIRAcetam Tablet 500 MG 750 MG PO ×2 (09:22→20:24)
--- NOTE | 2025-02-04 09:58 | ECG_ITS ---
Test Date: 2025-02-04 10:48:39 Measurements Intervals Vader Rate: 52 P: 38 WY: 150 QRS: 30 QRSD: 103 T: 39 QT: 418 QTc: 390 Interpretive Statements SINUS BRADYCARDIA ST ELEVATION, PROBABLY EARLY REPOLARIZATION Electronically Signed On 02-05-2025 20:40:18 CDT by Satinder Prado D.O
--- NOTE | 2025-02-04 13:40 | WPDNEUROLOGY ---
Neurology EEG Report General Information Date of Study: 02/03/25 TEST electroencephalogram DIAGNOSIS seizure disorder CONDITION OF RECORDING bedside recording EEG NUMBER [id number] CLINICAL HISTORY 29-year-old with history of seizure at place of work. He has had 2 other spells prior to this. EEG DESCRIPTION During wakefulness the background activity consists of posterior dominant alpha rhythm at 9 hertz with an amplitude of 20-40 microvolts which appears well-formed and reactive drive. Anteriorly low amplitude mixed frequency activity was seen. Hyperventilation not performed. Photic stimulation was performed during which no significant abnormal background changes were seen. Patient progressed to drowsiness during which attenuation of background activity was seen. Well-defined phase reversing sharp transients are noted over the right mid temporal area. Occasional spikes were also seen arising from left anterior temporal area. Occasional focal slowing was noted over the right temporal area patient progressed to stage I and 2 sleep during which vertex waves, sleep spindles, K complexes were seen. Photic stimulation was performed during which no significant abnormal background changes. IMPRESSION This is an abnormal EEG due to focal epileptiform abnormalities seen arising from Right posterior temporal and left anterior mandaen areas as described above. These are considered nonspecific focal interictal abnormality and hence clinical correlation is recommended.
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
[2025-02-05 00:02] VITALS: PULSE 51
[2025-02-05 04:04] VITALS: PULSE 49
[2025-02-05 06:00] VITALS: BP 137/70; PULSE 58; RESP 18; TEMP 36.4; O2SAT 100
[2025-02-05 08:00] VITALS: PULSE 62
[2025-02-05] MEDS: levETIRAcetam Tablet 250 MG, levETIRAcetam Tablet 500 MG 750 MG PO (08:36)
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
[2025-02-05 12:00] VITALS: PULSE 54
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
--- NOTE | 2025-02-06 13:38 | PC.NURSE ---
Addendum entered by Sharita Holliday RN 02/06/25 13:40: Pt verbalized understanding and stated he would give his pharmacy a call first. Original Note: This RN performed discharge call back at this time. Pt had question about alternate use for a medication that was prescribed. This RN instructed him to call his preferred pharmacy or his primary care doctor's office for clarification.
== END 2025-02-05 13:40 | disposition home or self-care (01) ==
LOC: ANHED 07:18 → ANH3MEDSUR 09:12
PROVIDERS: Internal Medicine; Student in an Organized Health Care Education/Training Program; Admitting Provider General Practice; Emergency Provider Emergency Medicine; PCP Internal Medicine; Visit Provider General Practice
DX: G40.909 Epilepsy, unspecified, not intractable, without status epilepticus (principal); S09.90XA Unspecified injury of head, initial encounter; S09.93XA Unspecified injury of face, initial encounter; R94.01 Abnormal electroencephalogram [EEG]; R00.1 Bradycardia, unspecified; R61 Generalized hyperhidrosis; Z87.891 Personal history of nicotine dependence; Z80.0 Family history of malignant neoplasm of digestive organs; Z80.9 Family history of malignant neoplasm, unspecified; Z82.49 Family history of ischemic heart disease and other diseases of the circulatory system; Z83.3 Family history of diabetes mellitus
CPT/HCPCS: 36415; 70496; 70498; 70551; 71045; 80048; 80053; 81001; 82948; 85025; 85055; 85610; 85730; 93005; 95816; 96360; 96361; 96365; 96372; 96375; 99285; A9270; G0378; J1650; J1953; J2405; J7030; J7120; Q9967